=== PATIENT | male | born 1980 | race Asian ===

== ENCOUNTER 2020-05-17 09:52 | Emergency (ER) | payer OTHER ==
[~2020-05-17] VITALS: Ht 170.2 cm; Wt 77.1 kg
[2020-05-17 10:07] VITALS: BP 131/77
--- NOTE | 2020-05-17 10:25 | NUR ---
ORDERED FOOD TRAY. GIVEN WATER
--- NOTE | 2020-05-17 11:42 | NUR ---
Patient given written and verbal discharge instructions. Patient verbalizes understanding of instructions. Patient is ambulatory with steady gait. Refuses offer of skilled nursing placement. Patient given list of available shelters in surrounding area.
== END 2020-05-17 11:43 | disposition home or self-care (01) ==
LOC: ER 09:57
DX: T67.5XXA Heat exhaustion, unspecified, initial encounter (principal); Z59.0 Homelessness; X58.XXXA Exposure to other specified factors, initial encounter; Y93.89 Activity, other specified; Y92.89 Other specified places as the place of occurrence of the external cause; Y99.8 Other external cause status